=== PATIENT | male | born 1985 | race African-American/Black ===

== ENCOUNTER 2022-09-05 12:51 | Emergency (ER) | payer OTHER, SELFPAY ==
[2022-09-05] MEDS ORDERED: Ketamine In 0.9 % NaCl 50 MG/5 ML SYRINGE ONE ×2 (13:35→13:37)
[2022-09-05] MEDS ORDERED: Midazolam HCl 5 mg/ml Vial ONE (13:40)
[2022-09-05] MEDS ORDERED: Rocuronium Bromide 10 MG/ML (10ML VIAL) ONE (13:46)
[2022-09-05] MEDS ORDERED: Propofol 1,000 MG/100 ML VIAL IV ONE ×2 (13:53→19:12)
[2022-09-05] MEDS ORDERED: levETIRAcetam 500 MG/5 ML VIAL ONE ×2 (14:01→16:13)
[2022-09-05 14:23] LABS: Hemoglobin 14.9 g/dL (14.0-18.0); Mean Corpuscular HGB CONC 34.2 g/dL (32.0-36.0); Mean Corpuscular Hemoglobin 30.8 pg (27.0-31.0); Platelet Count 167 10x3/uL (130-400); Red Blood Cell (RBC) Count 4.83 mill/uL (4.70-6.10); White Blood Cell (WBC) Count 17.3 10x3/uL (4.8-10.8)
[2022-09-05 14:39] LABS: Bacteria/HPF None Seen HPF (None Seen); Bilirubin Negative (Negative); Blood, Urine 1+ (Negative); Clarity Clear (Clear); Glucose, Urine (Dipstick) Normal (Negative); Ketone, Urine 20 mg/dL (Negative); Leukocyte Negative Leu/uL (Negative); Nitrite Negative (Negative); Protein, Urine (Dipstick) 30 mg/dL (Neg-Trace); RBC/HPF 0-3 HPF (0-3); Specific Gravity, Urine 1.018 (1.002-1.036); Squamous Epithelial None Seen HPF (0-3); Urobilinogen Normal mg/dL (Less than 2); WBC/HPF 0-3 HPF (0-3)
[2022-09-05 14:40] LABS: Sperm/HPF Rare HPF (None Seen)
[2022-09-05 14:42] LABS: #Lymphocytes 0.8 thou/uL (1.20-3.40); #Monocytes 0.7 thou/uL (0.11-0.59); #Neutrophils 15.7 thou/uL (1.40-6.50); %Basophils 0.1 % (0.0-1.0); %Eosinophils 0.1 % (0.0-10.0); %Lymphocytes 4.8 % (21.0-51.0); %Monocytes 3.9 % (0.0-10.0); %Neutrophils 91.1 % (42.0-75.0)
[2022-09-05 14:42] LABS: Amphetamine Not Detected (NotDetected); Barbiturates Screen Not Detected (NotDetected); Benzodiazepine Screen Not Detected (NotDetected); Cocaine Metabolite Screen Not Detected (NotDetected); Methadone Not Detected (NotDetected); Methamphetamine Not Detected (NotDetected); Opiate Screen Not Detected (NotDetected); Oxycodone Screen Not Detected (NotDetected); Phencyclidine (PCP) Not Detected (NotDetected); THC/Cannabinoid Screen Detected (NotDetected); Tricyclic Screen Not Detected (NotDetected)
[2022-09-05 14:43] LABS: Actual Bicarbonate (HCO3a) 19.3 mEq/L (22-28); Analyzer IN Cardio ER; Base Excess (BEa) -2.8 mEq/L (-2.0 to +3.0); CO2 Tension 27.3 mmHg (35.0-45.0); Calcium, Ionized (arterial) 1.11 mmol/L (1.12-1.30); Carboxyhemoglobin (COHb) 0.1 gm% (0.0-3.0); Hemoglobin (Hb) 14.7 g/dL (14.0-18.0); O2 Tension (PaO2), arterial 391.4 mmHg (80.0-100.0); Potassium - ABG Lab 3.43 mmol/L (3.70-5.30); pH, Arterial 7.47 (7.35-7.45)
[2022-09-05 14:45] LABS: ALV-art Gradient -69.025 mmHg (0-20); Puncture Site LRA
[2022-09-05 14:45] LABS: ALT (SGPT) 12 U/L (8-55); AST (SGOT) 30 U/L (5-34); Albumin 4.7 g/dL (3.5-5.0); Alkaline Phosphatase 76 U/L (40-110); Anion Gap 18 mmol/L (10-20); BUN (Urea Nitrogen) 14 mg/dL (8.9-20.6); Bilirubin, Total 0.5 mg/dL (0.2-1.2); Calc. Creatinine Clearance 0 mL/min (70-130); Calcium 9.2 mg/dL (7.8-10.44); Carbon Dioxide 20 mmol/L (22-29); Chloride 104 mmol/L (98-107); Estimated GFR 78; Globulin 3.1 g/dL (2.4-3.5); Glucose 122 mg/dL (70-105); Potassium 3.8 mmol/L (3.5-5.1); Protein, Total 7.8 g/dL (6.0-8.3); Sodium 138 mmol/L (136-145)
[2022-09-05 14:49] LABS: MDiff Complete? YES; Platelet Clumps SLIGHT; Platelet Morphology Comment Appears Adequate; RBC Morphology Normal
[2022-09-05] MEDS ORDERED: LORazepam 2 MG/ML SYR.(CARPUJECT) ONE (15:15)
[2022-09-05] MEDS ORDERED: Fentanyl CADD 100 ML IV SCH (16:00)
[2022-09-05] MEDS ORDERED: Acetaminophen 650 MG Suppository ONE (16:12)
[2022-09-05] MEDS ORDERED: Vancomycin 1.5 GRAM/300 ML BAG 1.5 GM in Premix Bag 1 BAG IVPB SCH (16:45)
[2022-09-05] MEDS ORDERED: cefTRIAXone (ROCEPHIN) 2 GM VIAL ONE (16:51)
[2022-09-05] MEDS ORDERED: FOSPHENYTOIN SODIUM IVPB SCH (17:00)
[2022-09-05] MEDS ORDERED: Acyclovir Sodium 650 MG in Sodium Chloride 0.9% 100 ML IVPB SCH (17:00)
[2022-09-05] MEDS ORDERED: SODIUM CHLORIDE 0.9% IVPB SCH (17:00)
[2022-09-05 17:20] LABS: INR-International Normal Ratio 1.1; Prothrombin Time 14.8 sec (12.0-14.7)
[2022-09-05 17:21] LABS: PTT 23.3 sec (22.9-36.1)
[2022-09-05 17:22] LABS: SARS-CoV-2 NAA Rapid Test Not Detected (NotDetected)
[2022-09-05 17:48] LABS: Lactic Acid 2.3 mmol/L (0.5-2.2)
[2022-09-05 19:10] LABS: CSF Source CSF; Clarity Clear (Clear); Tube # 1; Tube # 4
[2022-09-05 19:13] LABS: CSF, Glucose 67 mg/dl (40-70); CSF, Protein 63 mg/dL (15-40)
[2022-09-05 19:21] LABS: Color Of CSF Supernatant COLORLESS (Colorless); Unspun CSF Color COLORLESS (Colorless)
[2022-09-05 19:22] LABS: Tube # 2
== END 2022-09-05 19:26 | disposition short-term general hospital (02) ==
LOC: ERS 12:51
DX: G40.901 Epilepsy, unspecified, not intractable, with status epilepticus (principal); R77.8 Other specified abnormalities of plasma proteins; D72.829 Elevated white blood cell count, unspecified; Z20.822 Contact with and (suspected) exposure to COVID-19
CPT/HCPCS: 31500; 36415; 36600; 51702; 62270; 70450; 71045; 80053; 80306; 81003; 81015; 82553; 82805; 82945; 83605; 84146; 84157; 84484; 85025; 85610; 85730; 87040; 87070; 87086; 87205; 89051; 94002; 96365; 96366; 96367; 96368; 96375; 96376; J0133; J0696; J1953; J2060; J2250; J2704; J3010; J3370; J3490; Q2009